=== PATIENT | male | born 1970 | race Caucasian/White ===

== ENCOUNTER 2020-09-25 22:40 | Day surgery (SDCO) | payer OTHER ==
[~2020-09-25] VITALS: Ht 182.9 cm; Wt 104.1 kg
[2020-09-25 23:53] LABS: BASOPHIL 0.4 % (0-2); EOSINOPHIL 0 % (0-5); HCT 42.5 % (42.0-52.0); HGB 14.7 g/dl (13.2-18.0); MCH 31.1 pg (25.0-31.0); MCHC 34.6 g/dL (32.0-36.0); MCV 89.9 fL (78.0-100.0); MONOCYTE 5.8 % (0-12); MPV 9.7 fL (6.0-9.5); NEUTROPHIL 50.7 % (41-80); NRBC 0; PLT 170 K/uL (150-400); RBC 4.73 M/uL (4.70-6.00); RDW 12.3 % (11.5-14.0)
[2020-09-25 23:58] LABS: WBC 2.8 K/uL (4.0-10.5)
[2020-09-26 00:02] LABS: PRO-BNP 39 pg/mL (<125)
[2020-09-26 00:08] LABS: ALBUMIN 3.4 g/dL (3.4-5.0); BILIRUBIN - TOTAL 0.3 mg/dL (0.2-1.0); BUN/CREAT RATIO (CALC) 12.8 RATIO; C-REACTIVE PROTEIN 7.2 mg/dL (<=0.90); CREATININE 1.17 mg/dL (0.67-1.17); GLOBULIN (CALCULATION) 4.1 g/dL; LACTIC ACID 1.6 mmol/L (0.4-1.9); POTASSIUM 3.8 mmol/L (3.5-5.1); TOTAL PROTEIN 7.5 g/dL (6.4-8.2)
[2020-09-26] MEDS ORDERED: COSENTYX P150 MG/11 IM (03:24)
[2020-09-26] MEDS ORDERED: GLIMEPIRIDE4 MG PO (03:25)
[2020-09-26] MEDS ORDERED: FARXIGA5 MG PO (03:25)
[2020-09-26] MEDS ORDERED: ROSUVASTATIN CA20 MG PO (03:26)
[2020-09-26] MEDS ORDERED: TRULICITY1.5 MG/0.5 SC (03:27)
[2020-09-26] MEDS ORDERED: METFORMIN HCL1000 MG PO (03:28)
[2020-09-26] MEDS ORDERED: SERTRALINE HCL50 MG PO (03:28)
[2020-09-26 05:21] LABS: BASOPHIL 0 % (0-2); EOSINOPHIL 0 % (0-5); HCT 39.2 % (42.0-52.0); MCH 30.4 pg (25.0-31.0); MCHC 33.2 g/dL (32.0-36.0); MCV 91.8 fL (78.0-100.0); MONOCYTE 4.1 % (0-12); MPV 9.8 fL (6.0-9.5); NEUTROPHIL 69.1 % (41-80); NRBC 0; PLT 160 K/uL (150-400); RBC 4.27 M/uL (4.70-6.00); RDW 12.5 % (11.5-14.0); WBC 2.4 K/uL (4.0-10.5)
[2020-09-26 05:33] LABS: BUN/CREAT RATIO (CALC) 14.3 RATIO; CREATININE 1.19 mg/dL (0.67-1.17)
[2020-09-26] MEDS ORDERED: DEXAMETHASONE 2M2 MG PO (10:43)
[2020-09-26] MEDS ORDERED: AZITHROMYCIN250 MG PO (10:43)
[2020-09-26] MEDS ORDERED: ROBITUSSIN W/COD5 ML PO (10:43)
== END 2020-09-26 12:42 | disposition home or self-care (01) ==
LOC: FER 22:40 → FMS 09-26 02:15
PROVIDERS: Emergency Medicine Emergency Medical Services; Nurse Practitioner; ADMIT Allergy & Immunology Allergy
DX: U07.1 COVID-19 (principal); J12.82 Pneumonia due to coronavirus disease 2019; J96.01 Acute respiratory failure with hypoxia; E11.9 Type 2 diabetes mellitus without complications; L40.50 Arthropathic psoriasis, unspecified; Z79.84 Long term (current) use of oral hypoglycemic drugs; Z79.899 Other long term (current) drug therapy; Z90.89 Acquired absence of other organs; Z87.891 Personal history of nicotine dependence
CPT/HCPCS: 36415; 36600; 71275; 80048; 80053; 82728; 82803; 82962; 83605; 83615; 83880; 84145; 84484; 85025; 85379; 86140; 93005; 94010; 94640; 94664; 94667; C9399; G0378; J0456; J0696; J1100; J1650; J1885; J7030; J7050; Q9967; U0002